=== PATIENT | female | born 1985 ===

== ENCOUNTER 2017-02-12 21:32 | Emergency (ER) | payer OTHER ==
[2017-02-12 22:18] LABS: RBC URINE 86 /hpf (0-3); URINE BACTERIA MOD (<OCC); URINE BILIRUBIN NEGATIVE (NEGATIVE); URINE BLOOD 2+ (NEGATIVE); URINE COLOR Straw (YELLOW); URINE GLUCOSE (UA) NORMAL (Normal); URINE KETONE NEGATIVE (NEGATIVE); URINE LEUKOCYTE ESTERASE 2+ Leu/uL (Negative); URINE PROTEIN NEGATIVE (NEGATIVE); URINE UROBILINOGEN NORMAL mg/dL (0.2-1.0); WBC URINE 136 /hpf (0-5)
--- NOTE | 2017-02-12 22:36 | C.PDOC ---
History Of Present Illness 31 year old female presents to the ED with complaints of sharp, intermittent epigastric pain for two days with associated nausea. Patient notes dysuria but denies vomiting, diarrhea, hematuria, fever, vaginal bleeding or discharge. Time Seen by Provider: 02/12/17 21:41 Chief Complaint (Nursing): Abdominal Pain History Per: Patient History/Exam Limitations: no limitations Onset/Duration Of Symptoms: Days (2 days ), Intermittent Episodes Current Symptoms Are (Timing): Still Present Severity: Mild Location Of Pain/Discomfort: Epigastric Quality Of Discomfort: Sharp, "Pain" Associated Symptoms: Nausea, Other (dysuria ). denies: Fever, Chills, Vomiting , Diarrhea Exacerbating Factors: None Abnormal Vaginal Bleeding: No Past Medical History Reviewed: Historical Data, Nursing Documentation, Vital Signs Vital Signs: Last Vital Signs Temp 98.1 F 02/13/17 00:15 Pulse 75 02/13/17 00:15 Resp 18 02/13/17 00:15 BP 151/110 H 02/13/17 00:15 Pulse Ox 97 02/13/17 00:15 - Medical History PMH: No Chronic Diseases Family History: States: No Known Family Hx - Social History Hx Alcohol Use: Yes Hx Substance Use: No - Immunization History Hx Tetanus Toxoid Vaccination: No Hx Influenza Vaccination: No Hx Pneumococcal Vaccination: No Review Of Systems Except As Marked, All Systems Reviewed And Found Negative. Constitutional: Negative for: Fever, Chills Cardiovascular: Negative for: Chest Pain, Palpitations Respiratory: Negative for: Cough, Shortness of Breath Gastrointestinal: Positive for: Nausea, Abdominal Pain. Negative for: Vomiting , Diarrhea Genitourinary: Positive for: Dysuria. Negative for: Hematuria, Vaginal Discharge, Vaginal Bleeding Musculoskeletal: Negative for: Back Pain Physical Exam - Physical Exam Appears: Well, Non-toxic, No Acute Distress Skin: Warm, Dry Oral Mucosa: Moist Neck: Supple Cardiovascular: Rhythm Regular Respiratory: Normal Breath Sounds, No Rales, No Rhonchi, No Wheezing Gastrointestinal/Abdominal: Bowel Sounds, Soft, Tenderness (Mild epigastric tenderness to palpation), No Distention, No Guarding, No Rebound, Other (Obese abdomen. (-) McBurney's. (-) Gonzalez's. ) Back: No CVA Tenderness Neurological/Psych: Oriented x3 ED Course And Treatment - Laboratory Results Result Diagrams: 02/12/17 23:02 02/12/17 23:02 O2 Sat by Pulse Oximetry: 100 (room air ) Progress Note: Blood work, UA, Upreg ordered and reviewed. Patient given IV NS bolus, IV pepcid. 23:35- Patient still c/o pain, IV toradol ordered. Reevaluation Time: 23:55 Reassessment Condition: Improved (On reassessment, patient is resting comfortably and states she feels better. On exam, abdomen is currently soft and nontender. Blood work unremakrable, Upreg (-). UA (+) for UTI - Patient given PO Ciprofloxacin. Rxs for pepcid and ciprofloxacin given, and patient instructed to follow up with GI within 1 week. Epigastric pain likely due to gastritis/PUD/GERD. Patient understands she should return to ED if symptoms worsen.) Disposition Counseled Patient/Family Regarding: Diagnosis, Need For Followup, Rx Given - Disposition Referrals: Leroy Mendez MD [Staff Provider] - at [facility] [Outside] Disposition: HOME/ ROUTINE Disposition Time: 23:55 Condition: STABLE Additional Instructions: FOLLOW UP WITH GI SPECIALIST WITHIN 1 WEEK USE PROTONIX DAILY AVOID SPICY OR ACIDIC FOODS USE ANTIBIOTIC UNTIL FINISHED RETURN TO ER IF SYMPTOMS WORSEN Prescriptions: Ciprofloxacin [Cipro] 1 tab PO BID #14 tab Pantoprazole [Protonix EC Tab] 20 mg PO DAILY #30 ect Instructions: Urinary Tract Infection in Women (ED), Epigastric Pain (ED) Forms: [facility] (Somali) Print Language: MONTENEGRIN - POA Present On Arrival: None - Clinical Impression Clinical Impression: Epigastric abdominal pain, UTI (urinary tract infection) - Scribe Statement The provider has reviewed the documentation as recorded by the Scribchen Grimes All medical record entries made by the Scribe were at my direction and personally dictated by me. I have reviewed the chart and agree that the record accurately reflects my personal performance of the history, physical exam, medical decision making, and the department course for this patient. I have also personally directed, reviewed, and agree with the discharge instructions and disposition.
[2017-02-12 23:05] LABS: BASO # 0.1 K/uL (0.0-0.2); BASO % 0.5 % (0.0-2.0); EOS # 0.5 K/uL (0.0-0.7); EOS % 3.7 % (0.0-4.0); HEMATOCRIT 36.9 % (34.0-47.0); LYMPH % 24.1 % (20.0-40.0); MEAN CELL VOLUME 72.2 fL (81.0-99.0); MEAN CORPUSCULAR HEMOGLOBIN 22.9 pg (27.0-31.0); MEAN CORPUSCULAR HGB CONC 31.7 g/dL (33.0-37.0); MONO # 0.9 K/uL (0.0-0.8); MONO % 6.9 % (0.0-10.0); RED CELL DISTRIBUTION WIDTH 14.3 % (11.5-14.5); WHITE BLOOD COUNT 12.6 K/uL (4.8-10.8)
[2017-02-12 23:17] LABS: CHLORIDE 99 mmol/L (98-107); SODIUM 139 mmol/L (132-148)
[2017-02-12 23:18] LABS: POTASSIUM 3.8 mmol/L (3.6-5.2)
[2017-02-12 23:20] LABS: ALB/GLOB RATIO 1.2 (1.0-2.1); ALKALINE PHOSPHATASE 76 U/L (38-126); ALT/SGPT 26 U/L (9-52); AST/SGOT 16 U/L (14-36); BILIRUBIN,TOTAL 0.5 mg/dL (0.2-1.3); BLOOD UREA NITROGEN 11 mg/dL (7-17); CALCIUM 9.1 mg/dl (8.6-10.4); CARBON DIOXIDE 27 mmol/L (22-30); GFR AFRICAN-AMERICAN > 60; GLUCOSE,RANDOM 96 mg/dL (65-105); TOTAL PROTEIN 7.2 g/dL (6.3-8.3)
[2017-02-13 00:22] VITALS: BP 151/110; PULSE 75; RESP 18; TEMP 98.1
[2017-02-18 12:01] VITALS: O2SAT 100
== END 2017-02-13 00:22 | disposition home or self-care (01) ==
LOC: C.ER 21:32
DX: N39.0 Urinary tract infection, site not specified (principal); R10.13 Epigastric pain